=== PATIENT | female | born 1940 | race Hispanic/Latino ===

== ENCOUNTER 2021-09-24 15:06 | Inpatient (IN) | payer SELFPAY ==
[~2021-09-24] VITALS: Ht 121.9 cm; Wt 43.2 kg
[2021-09-24] MEDS ORDERED: OMEPRAZOLE20 MG PO (15:34)
--- NOTE | 2021-09-25 20:21 | EKG ---
[facility] [address] [facility] [place], [place] [address] Signed Normal sinus rhythm Minimal voltage criteria for LVH, may be normal variant ( [place] product ) Abnormal ECG No previous ECGs available Confirmed by DENISE MELVIN MD [id number] on 09/25/2021 8:21:01 PM Electronically Signed By: DENISE MELVIN MD 09/25/212020 PATIENT NAME: ANASTASIA LAIRD Electrocardiogram DATE OF : 44 PHYSICIAN: DENISE MELVIN MD REPORT #: [id number] REPORT IS CONFIDENTIAL AND NOT TO BE RELEASED WITHOUT AUTHORIZATION
== END 2021-09-25 13:30 | disposition home or self-care (01) | DRG 293 ==
LOC: ED 15:06 → MS 18:12
PROVIDERS: ADMIT Internal Medicine; ATTEND Internal Medicine
DX: I50.9 Heart failure, unspecified (principal); Z20.822 Contact with and (suspected) exposure to COVID-19; Z87.891 Personal history of nicotine dependence; Z87.442 Personal history of urinary calculi; Z79.899 Other long term (current) drug therapy
CPT/HCPCS: 36415; 71045; 71046; 80048; 80053; 83690; 83735; 83880; 84100; 84484; 85025; 87502; 93005; 93010; 93306; 94640; 99285-25; A9270; C9803; J1100; J1940; U0003